=== PATIENT | female | born 1990 | race African-American/Black ===

== ENCOUNTER 2016-12-25 18:15 | Inpatient (IN) | payer OTHER ==
[2016-12-25] MEDS ORDERED: DEXTROSE 5%-LACTATED RINGERS 500 ML IV ONE ×2 (19:10→20:10)
[2016-12-25 20:56] LABS: BASOPHIL 0.3 % (0-2.0); EOSINOPHIL 1.3 % (0-4.5); MCHC 33.2 g/dl (32.0-36.0); MEAN CELL VOLUME 96.4 fl (80-96); MEAN PLT VOLUME 8.1 fl (7.5-11.1); NEUTROPHILS 64.7 % (42.8-82.8); PLATELET COUNT 289 K/MM3 (134-434); RDW 13.8 % (11.6-15.6); WHITE BLOOD COUNT 7.4 K/mm3 (4.0-10.0)
[2016-12-25 21:17] LABS: INR 1.02 (0.82-1.09); PROTHROMBIN TIME (PATIENT) 11.2 SEC (9.98-11.88)
[2016-12-25 21:20] LABS: ACTIVATED PTT 30.8 SECONDS (26.9-34.4)
[2016-12-25 21:21] LABS: ANION GAP 9 (8-16); CALCIUM 8.2 mg/dL (8.5-10.1); CO2 22 mmol/L (21-32); CREATININE 0.8 mg/dL (0.55-1.02); GLUCOSE,RANDOM 115 mg/dL (74-106)
[2016-12-25] MEDS ORDERED: BUTORPHANOL TARTRATE 1 MG/ML VIAL IVPB ONE (22:00)
[2016-12-25] MEDS ORDERED: DEXTROSE 5%-LACTATED RINGERS 1,000 ML IV SCH (22:00)
[2016-12-25] MEDS ORDERED: PROMETHAZINE HCL 25 MG/1 ML VIAL IVPB ONE (22:00)
[2016-12-25 22:59] LABS: URINE APPEARANCE CLEAR; URINE BILIRUBIN NEGATIVE (NEGATIVE); URINE COLOR LTYELLOW; URINE GLUCOSE (UA) NEGATIVE (NEGATIVE); URINE KETONE NEGATIVE (NEGATIVE); URINE NITRITE NEGATIVE (NEGATIVE); URINE PROTEIN NEGATIVE (NEGATIVE); URINE UROBILINOGEN NEGATIVE E.U./dl (0.2-1.0)
[2016-12-25 23:06] LABS: URINE BLOOD 2+ (NEGATIVE); URINE LEUK ESTERASE 3+ (NEGATIVE)
[2016-12-25 23:08] LABS: URINE BACTERIA RARE /hpf (NONE SEEN); URINE MUCUS RARE; URINE RBC 2 /hpf (0-3); URINE WBC 44 /hpf (3-5)
[2016-12-26 00:03] LABS: URINE MARIJUANA THC NEGATIVE ng/ml (CUTOFF=50)
[2016-12-26 00:16] VITALS: BMI 39.6
[2016-12-26] MEDS: ELECTROLYTE-148 SOLN 1,000 ML IV SCH ×2 (02:50→06:25)
[2016-12-26] MEDS ORDERED: FENTANYL/BUPIVACAINE/NS/PF - PCEA - 50 ML DISP.SYRIN EP SCH (03:00)
[2016-12-26] MEDS ORDERED: ACETAMINOPHEN/CAFFEINE/BUTALBITAL 1 TAB PO ONE (04:19)
[2016-12-26] MEDS: OXYTOCIN 15 UNITS/ LR 250 ML 250 ML IVPB SCH (05:40)
--- NOTE | 2016-12-26 09:13 | HP ---
Past Medical History - Primary Care Physician PCP:: Jose Guzman - Admission Chief Complaint: 26yo P0 with atEGA 40wks admitted with spontaneous latent labor last night. History of Present Illness: care complicated by obesity Late PNC transfer from [facility] at 32wks History Source: Patient, Medical Record Limitations to Obtaining History: No Limitations - Past Medical History ACCESS SPEC: No: Alzheimer's, CVA, Dementia, Migraine, Multiple Sclerosis, Peripheral Neuropathy, Parkinson's, Seizure, Syncope, TIA, Vertigo, Other Cardiovascular: No: AFIB, Aneurysm, Aortic Insufficiency, Aortic Stenosis, CAD, CHF, Deep Vein Thrombosis, HTN, Hyperlipdemia, [place], Mitral Insufficiency, Mitral Stenosis, Murmur, Pulmonary Hypertension, Other Pulmonary: Yes: Asthma Gastrointestinal: No: Ascites, Cancer, Constipation, Crohn's Disease, Diverticulitis, Diverticulosis, Esophageal Varices, Gastritis, GERD, GI Bleed, Hemorrhoids, Hiatal Hernia, Inflamatory Bowel Disease, Irritable Bowel Disease, Pancreatitis, Peptic Ulcer Disease, Ulcerative Colitis, Other Hepatobiliary: No: Cirrhosis, Cholelithiasis, Cholecystitis, Choledocholithiasis , Hepatitis A, Hepatitis B, Hepatitis C, Other Renal/: No: Renal Failure, Renal Inusuff, BPH, Cancer, Hematuria, Hemodialysis , Neurogenic Bladder, Renal Calculi, UTI, Other ...: 1 ...Para: 0 ...Term: 0 ...: 0 ...Spon : 0 ...Induced : 0 ...Multiple Gestation: 0 ...LMP: 03/20/16 ... Weeks Gestation by Dates: 40.0 ...EDC by Dates: 12/25/16 ...EDC by Sono: 12/25/16 Heme/Onc: No: Anemia, B12 Deficiency, Bleeding Disorder, Cancer, Current Chemotherapy, Current Radiation Therapy, Hemochromatosis, Hypercoaguable State, Myeloproliferative Synd, Sickle Cell Disease, Sickle Cell Trait, Thrombocytopenia, Other Infectious Disease: Yes: Other (Chlamydia in early ) Psych: No: Addictions, Anxiety, Bipolar, Depression, Panic, Psychosis, Schizophrenia, Other Musculoskeletal: No: Bursitis, Chronic low back pain, Hemiparesis, Hemiplegia, Osteoarthritis, Paraplegia, Other Rheumatology: No: Fibromyalgia, Gout, Lupus, Rheumatoid Arthritis, Sarcoidosis, Vasculitis, Other ENT: No: Allergic Rhinitis, Sinusitis, Other Endocrine: No: [place]'s Disease, Ronnie's Disease, Diabetes Insipidus, Diabetes Mellitus, Hyperparathyroidism, Hyperthyroidism, Hypothyroidism, Osteopenia, SIADH, Other Dermatology: No: Basal Cell, Cellulitis, Eczema, Melanoma, Psoriasis, Squamous Cell, Other Additional Medical History: Obese - Past Surgical History Past Surgical History: Yes: None Hx Myomectomy: No Hx Transabdominal Cerclage: No - Smoking History Smoking history: Never smoked Have you smoked in the past 12 months: No - Alcohol/Substance Use Hx Alcohol Use: No History of Substance Use: reports: None - Social History Usual Living Arrangement: Yes: Alone ADL: Independent History of Recent Travel: No Home Medications - Allergies Allergies/Adverse Reactions: Allergies Allergy/AdvReac Type Severity Reaction Status Date / Time No Known Allergies Allergy Verified 12/26/16 08:29 - Home Medications Home Medications: Ambulatory Orders Albuterol Sulfate Inhaler - [Ventolin Hfa Inhaler -] 1 - 2 inh PO Q4H PRN Fluticasone/Salmeterol [Advair Hfa 115-21 Mcg Inhaler] 1 inh PO BID 12/25/16 Montelukast Na [Singulair -] 10 mg PO DAILY 12/25/16 Vitamins (Sjr) - 1 tab PO DAILY 12/25/16 Family Disease History - Family Disease History Family History: Denies Review of Systems - Review of Systems Constitutional: reports: No Symptoms Eyes: reports: No Symptoms HENT: reports: No Symptoms Neck: reports: No Symptoms Cardiovascular: reports: No Symptoms Respiratory: reports: No Symptoms Gastrointestinal: reports: No Symptoms Genitourinary: reports: No Symptoms Breasts: reports: No Symptoms Reported Musculoskeletal: reports: No Symptoms Integumentary: reports: No Symptoms Neurological: reports: No Symptoms Endocrine: reports: No Symptoms Hematology/Lymphatic: reports: No Symptoms Psychiatric: reports: No Symptoms Pain Intensity: 0 (Epidural) Physical Exam - Maternity Vital Signs: Vital Signs Temperature 99.0 F 12/26/16 07:00 Pulse Rate 91 H 12/26/16 07:45 Respiratory Rate 20 12/26/16 07:45 Blood Pressure 97/49 12/26/16 07:45 O2 Sat by Pulse Oximetry (%) 97 12/26/16 07:45 Constitutional: Yes: Well Nourished, No Distress, Calm Eyes: Yes: WNL, Conjunctiva Clear HENT: Yes: WNL, Atraumatic, Normocephalic Neck: Yes: WNL, Supple, Trachea Midline Cardiovascular: Yes: WNL, Regular Rate and Rhythm Lungs: Clear to auscultation, Normal air movement Breast(s): Yes: WNL - Abdominal Exam/OB Fundal Height: 40 Number of Fetuses: Single Presentation: Vertex Contractions: Yes Regularity: Regular Intensity: Unaware Monitor Mode: External Heart Rate (range): 135 Heart Rate Location: Midline Category: II Accelerations: Non-Uniform Decelerations: Variable - Vaginal Exam/OB Vaginal Bleediing: No Speculum Exam: No Dilatation (cm): 10 Effacement (%): 100 Amniotic Membrane Status: Leaking Amniotic Fluid: Yes: Clear Presentation: Vertex/Position Station: 0 - Physical Exam Musculoskeletal: Yes: WNL Extremities: Yes: WNL Edema: Yes Edema: LLE: Trace, RLE: Trace Integumentary: Yes: WNL Deep Tendon Reflex Grade: Normal +2 ...Motor Strength: WNL Psychiatric: Yes: WNL, Alert, Oriented - Labs Lab Results: CBC, BMP 12/25/16 19:50 12/25/16 19:50 Hemorrhage Risk Assessment - Risk Factors Medium Risk Factors: Yes: None High Risk Factors: Yes: None Risk Score: 1 Risk Level: Medium Risk Assessment/Plan 26yo P0 with atEGA 40wks admitted with spontaneous latent labor last night. Pt with SROM overnight. Now s/p epidural placement and comfortable. FSE was applied. Pt with second stage of labor but head is high and plan to wait for spont descent of head. tracing is Category II. Plan to monitor labor and tracing
--- NOTE | 2016-12-26 10:52 | PN ---
Progress Note, Labor Vaginal Exam #1 Labor Exam Date: 12/26/16 Labor Exam Time: 10:30 Heart Rate (range): 120 Dilatation: 10 Effacement (%): 100 Amniotic Membrane Status: Ruptured Presentation: Vertex/Position Station: +1 Remarks: 26 yo @ 40 wks, active labor 1. Fully dilated, will await descent 2. GBS negative 3. Occasional variable deceleration, curretnly category II. Patient placed on L lateral and O2 via facemask 4. will continue to monitor
[2016-12-26] MEDS: OXYTOCIN 20 UNITS in 0.9% NS 1,000 ML IV SCH ×2 (13:45→20:45)
[2016-12-26 14:55] LABS: ARTERIAL BLD GAS O2 SATURATION 9.1 % (90-98.9); ARTERIAL BLOOD GAS BASE EXCESS -2.8 meq/l (-2-2); ARTERIAL BLOOD GAS HCO3 24.9 meq/L (22-26); ARTERIAL BLOOD GAS pH 7.26 (7.35-7.45)
[2016-12-26 14:57] LABS: ARTERIAL BLD GAS O2 SATURATION 56.6 % (90-98.9); ARTERIAL BLOOD GAS BASE EXCESS -3.1 meq/l (-2-2); ARTERIAL BLOOD GAS pH 7.34 (7.35-7.45)
[2016-12-26 15:20] LABS: ARTERIAL BLOOD GAS PO2 9.5 mmHg (80-100)
[2016-12-26 15:21] LABS: LPM/O2% 21%; PT. ON O2? NO
[2016-12-26 15:22] LABS: ARTERIAL BLOOD GAS PO2 26.4 mmHg (80-100); LPM/O2% 21%; PT. ON O2? NO; TYPE OF O2 ROOM AIR
[2016-12-26] MEDS ORDERED: oxyCODONE HCL 5 MG TABLET PO PRN (15:28)
[2016-12-26] MEDS ORDERED: METHYLERGONOVINE MALEATE 0.2 MG/1 ML AMP IM PRN (15:28)
[2016-12-26] MEDS ORDERED: IBUPROFEN 800 MG/8 ML IJ IVPB PRN (15:28)
[2016-12-26] MEDS ORDERED: WITCH HAZEL 50% (TUCKS) 40 PAD/JAR PAD TP PRN (15:28)
[2016-12-26] MEDS ORDERED: IBUPROFEN 600 MG TABLET (FP) PO PRN (15:28)
--- NOTE | 2016-12-26 15:33 | PN ---
Progress Note (short form) - Note Progress Note: Late note for 12/26@ 1300 Patient examined, found to be fully dilated and pushing for approximately three hours Discussed given poor descent of head with contractions, patient desires delivery. Discussed risks including but not limited to infection, bleeding requiring transfusion and damage to surrounding organs such as the bowel or bladder. Discussed risk of injury to . Discussed risk of wound infection and separation. Discussed need for planning of future children and possibility of abnormal placentation. All questions answered. Patient expressed understanding. Nursing and OR staff notified. Will proceed to OR
--- NOTE | 2016-12-26 15:34 | PN ---
Delivery - Delivery Vaginal Delivery: No Problems Section: Primary Type of Anesthesia: Epidural EBL (cc): 800 Delivery, Single - Stages of Labor Date 1st Stage Initiatied: 12/25/16 Time 1st Stage Initiated: 22:00 Date 2nd Stage Initiated: 12/26/16 Time 2nd Stage Initiated: 09:00 Date of Delivery: 12/26/16 Time of Delivery: 14:31 Date Placenta Delivered: 12/26/16 Time Placenta Delivered: 14:32 - Condition of Infant Gender: Male Position: Left, OT - [place] Feeding Plan Initial Plan: Elected not to breastfeed exclusively throughout hospitalization Remarks - Remarks Remarks: Surgeon: Andrew Assist: Thomas Anesthesia: Roy EBL: 800 IVF: 2000 UOP 200 Findings: male infant, LOT, Wt 7lb 1oz, 19 inches, 9,9, Normal tubes and ovaries bilaterally Dictation:
[2016-12-26] MEDS ORDERED: morphine SULFATE/Preservative Free 0.5 MG/ML (1cc Syringe) EP ONE (15:50)
[2016-12-26] MEDS ORDERED: ONDANSETRON 4 MG/2 ML VIAL IVPB PRN (15:50)
[2016-12-27] MEDS: OXYTOCIN 15 UNITS/ LR 250 ML 250 ML IVPB SCH (00:01)
[2016-12-27 07:17] LABS: BASOPHIL 0.3 % (0-2.0); MCH 32.4 pg (25.7-33.7); MCHC 33.1 g/dl (32.0-36.0); MEAN CELL VOLUME 97.8 fl (80-96); MEAN PLT VOLUME 7.7 fl (7.5-11.1); NEUTROPHILS 73.6 % (42.8-82.8); PLATELET COUNT 216 K/MM3 (134-434); WHITE BLOOD COUNT 16.6 K/mm3 (4.0-10.0)
--- NOTE | 2016-12-27 07:48 | PN ---
Post Progress Note - Subjective Subjective: Patient without acute complaints. Reports tolerating oral intake without nausea or vomiting. No ambulation or voiding yet. Denies fevers or chills. Pain well controlled with oral pain medication. and bottle feeding. No flatus yet. Post Day: 1 Type of Delivery: Primary C/S Vital Signs: Vital Signs Temperature 98.4 F 12/27/16 06:00 Pulse Rate 90 12/27/16 06:00 Respiratory Rate 18 12/27/16 06:00 Blood Pressure 117/69 12/27/16 06:00 O2 Sat by Pulse Oximetry (%) 100 12/26/16 16:25 Breast Exam: Yes: Soft Uterus: Yes: Fundus Firm, Fundus @ umbilicus Incision: Yes: Dressing dry and intact Abdomen/GI: Yes: Abdomen soft, Tender (incisional), Tolerating PO. No: Abdominal Distention, Passing flatus Lochia: Yes: Serosa Lochia, amount: Small Extremities: Yes: Calves non-tender, Edema (trace) - Labs Labs: CBC WBC 16.6 K/mm3 (4.0-10.0) H D 12/27/16 06:00 RBC 3.33 M/mm3 (3.60-5.2) L 12/27/16 06:00 Hgb 10.8 GM/dL (10.7-15.3) 12/27/16 06:00 Hct 32.5 % (32.4-45.2) 12/27/16 06:00 MCV 97.8 fl (80-96) H 12/27/16 06:00 MCHC 33.1 g/dl (32.0-36.0) 12/27/16 06:00 RDW 14.0 % (11.6-15.6) 12/27/16 06:00 Plt Count 216 K/MM3 (134-434) D 12/27/16 06:00 MPV 7.7 fl (7.5-11.1) 12/27/16 06:00 Neutrophils % 73.6 % (42.8-82.8) 12/27/16 06:00 Lymphocytes % 17.0 % (8-40) D 12/27/16 06:00 Monocytes % 8.1 % (3.8-10.2) 12/27/16 06:00 Eosinophils % 1.0 % (0-4.5) 12/27/16 06:00 Basophils % 0.3 % (0-2.0) 12/27/16 06:00 Assessment/Plan 26 yo POD #1 s/p primary CD, afebrile, vital signs stable, doing well 1. Continue routine postoperative care. 2. AM CBC stable 3. Rh positive status, no rhogam indicated. 4. Encourage ambulation and incentive spirometer use 5. Continue oral pain medication 6. Anticipate discharge home postopearative day #3 or #4
[2016-12-27] MEDS: PRENATAL VITAMINS W/ FOLIC ACID TABLET (FP) PO SCH (09:28)
[2016-12-27] MEDS: ENOXAPARIN NA (PORCINE) 40 MG/0.4 ML DISP.SYRIN SQ SCH (09:28)
--- NOTE | 2016-12-27 10:29 | PN ---
Progress Note (short form) - Note Progress Note: Anesthesia postop note 26 y/o F s/p epidural anesthesia for labor and section POD#1, vss, aaox3, no complaints, pain well controlled, sitting in chair, no headache, sensory motor intact distally Epidural catheter removed this morning with tip intact. Patient instructed to inform the nurse if she experience a headache. No anesthesia complications so far.
--- NOTE | 2016-12-27 12:11 | OP ---
DATE OF OPERATION: 12/26/2016 PREOPERATIVE DIAGNOSIS: Intrauterine at 40 weeks, failure to descend. POSTOPERATIVE DIAGNOSIS: Intrauterine at 40 weeks, failure to descend. FINDINGS: Male infant in LOT position. Apgars of 9 and 9. Weight: 7 pounds 1 ounce; 19 inches. Normal tubes and ovaries bilaterally. SURGEON: Shayy Morales MD DRIVER'S EDUCATION INSTRUCTOR: Jose Guzman MD ANESTHESIA: Dr. Roy ESTIMATED BLOOD LOSS: 800 INTRAVENOUS FLUIDS: 2000 URINE OUTPUT: 200 INDICATION: Patient is a 26-year-old, 1, para 0, who presented in labor , progressed to fully dilated, pushed for approximately 3 hours with poor descent of head. She was counseled regarding continued vaginal delivery versus delivery. She opted for delivery. Risks, benefits, and alternatives, and complications of the procedure were discussed including infection; bleeding requiring transfusion; damage to surrounding organs such as bowel, bladder, ureters; injury to ; abnormal presentation of next . She expressed understanding, was brought to the operating room. DESCRIPTION OF PROCEDURE: When anesthesia was found to be adequate, patient was prepped and draped in the normal sterile fashion, placed in dorsal supine position with a leftward tilt. An approximately 11-cm skin incision was made with a knife and extended down to the underlying rectus muscles using the Bovie electrocautery. The fascia was nicked in the midline, extended laterally using Rivers scissors. The superior portion of the fascial incision was tented up using Marely clamps and dissected off the underlying rectus muscles using the Rivers scissors. Attention was brought to the inferior portion which was tented up using Marely clamps, dissected off the underlying rectus muscles using Rivers scissors. The rectus muscles were manually, and the peritoneum was entered sharply. The peritoneal incision was bluntly extended. The vesicouterine peritoneum was identified, entered sharply, and bladder flap was created digitally. Hysterotomy was performed and extended using the bandage scissors. The infant's head was found to be in the pelvis and brought to the hysterotomy site. Infant's head was delivered, followed by shoulders and body without difficulty. Nuchal cord was noted and reduced. Cord was clamped and cut. was handed to the waiting NICU staff. The blood gases and cord blood were collected and sent. The placenta was manually extracted. The uterus was cleared of all clot and debris. The uterus was closed using 0 Biosyn in a running fashion with a second layer as an imbricated layer. Good hemostasis was noted from the hysterotomy site. The vesicouterine peritoneum was reapproximated using 0 Biosyn in a running fashion. The gutters were cleared of all clot and debris. Good hemostasis was noted. The parietal peritoneum was closed using 2-0 Biosyn in a running fashion. The rectus muscles were reapproximated using 0 Biosyn in an interrupted fashion. The fascia was closed using 0 Vicryl in a running fashion. The subcutaneous fat was closed using 0 Vicryl in a running fashion. The skin was reapproximated using 2-0 Vicryl. Patient tolerated the procedure well. Estimated blood loss was 800 mL. Patient was brought to recovery room in stable condition. Georgette [id number] MTDD
[2016-12-27] MEDS: SIMETHICONE 80 MG TAB.CHEW (FP) PO PRN ×2 (12:29→21:29)
[2016-12-27] MEDS: ACETAMINOPHEN 325 MG TABLET (FP) PO PRN (12:29)
[2016-12-27] MEDS: IBUPROFEN 600 MG TABLET (FP) PO PRN ×2 (12:30→21:30)
[2016-12-27] MEDS: ELECTROLYTE-148 SOLN 1,000 ML IV SCH (13:59)
[2016-12-27] MEDS ORDERED: BISACODYL 10 MG SUPP.RECT RC PRN (15:28)
[2016-12-27] MEDS: OXYTOCIN 20 UNITS in 0.9% NS 1,000 ML IV SCH (15:42)
[2016-12-27] MEDS: ACETAMINOPHEN/CAFFEINE/BUTALBITAL 1 TAB PO PRN (21:29)
[2016-12-28] MEDS: SIMETHICONE 80 MG TAB.CHEW (FP) PO PRN ×4 (01:28→23:33)
[2016-12-28] MEDS: ACETAMINOPHEN/CAFFEINE/BUTALBITAL 1 TAB PO PRN ×2 (01:29→09:12)
[2016-12-28] MEDS: IBUPROFEN 600 MG TABLET (FP) PO PRN (01:29)
--- NOTE | 2016-12-28 08:32 | PN ---
Progress Note (short form) - Note Progress Note: pod 2 s/p c/s , c/o headache, worsen by moving , no blurred vision CBC, BMP 12/27/16 06:00 12/25/16 19:50 Last Vital Signs Temp Pulse Resp BP Pulse Ox 98.6 F 87 18 113/61 100 12/27/16 22:00 12/27/16 22:00 12/27/16 22:00 12/27/16 22:00 12/26/16 16:25 uterus firm, non tender, no cva incision dry, clean no calf tenderness impression r/o spinal headache pod 2 incison healinng wel;l plan anesthesia consult, hydration
[2016-12-28] MEDS: ENOXAPARIN NA (PORCINE) 40 MG/0.4 ML DISP.SYRIN SQ SCH (09:12)
[2016-12-28] MEDS: PRENATAL VITAMINS W/ FOLIC ACID TABLET (FP) PO SCH (09:12)
--- NOTE | 2016-12-28 09:24 | PN ---
Progress Note (short form) - Note Progress Note: Patient states desires circumcision for . Discussed risks including infection, bleeding, damage to tip of penis, and unsatisfactory result, resulting in surgical repair or repeat circumcision. Patient expressed understanding and consents to procedure. Reviewed infants chart, normal genitalia per sugar cane farm manager, Dr. Proctor
[2016-12-28] MEDS ORDERED: LIDOCAINE HCL/PF 2% SDV 5ML VIAL ONE (10:46)
--- NOTE | 2016-12-28 11:13 | PROC ---
Procedure Note Procedure: ANESTHESIOLOGY - EPIDURAL BLOOD PATCH Called to evaluate patient for post-dural puncture headache on PPD #2 after known dural puncture. Pt has significant scoliosis. Pt c/o bilateral frontal and occipital/neck headache 10/10 when sitting and 6/10 when supine. Denies audiotory or visual changes, N/V. Risks and benefits of performing epidurla blood patch vs conservative management with bed rest, hydration, NSAIDs and caffeine. Pt desires blood patch and informed consent obtained. Dr. Lupillo Sands in attendance. Pt sitting. Sterile prep/drape, 1% lidocaine skin infiltration at ~L3-L4. Multiple attempts with 17G x 9cm Tuohy needle. ROSE to NS felt at 9 cm. 18G peripheral intravenous access of left antecubital vein obtained under sterile conditions. 10 ml of blood collected and 5 lm of blood injected but patient experienced right sided paresthesia and injection ceased. Another attempt made by Dr Sands with ROSE to NS at 9 cm at same level. 18G peripheral intravenous access of left hand obtained under sterile conditions. 30 ml of blood collected and 25 ml injected through Tuohy needle. Needle removed and pat reports some relief of headache on injectoin. Pt lay supine and instructed to stay supine for 1 hour. Will follow.
[2016-12-28] MEDS: ACETAMINOPHEN 325 MG TABLET (FP) PO PRN ×3 (13:48→23:34)
[2016-12-28] MEDS: oxyCODONE HCL 5 MG TABLET PO PRN ×3 (13:49→23:33)
[2016-12-29] MEDS: IBUPROFEN 600 MG TABLET (FP) PO PRN ×2 (08:14→12:33)
[2016-12-29] MEDS: SIMETHICONE 80 MG TAB.CHEW (FP) PO PRN ×2 (08:15→12:34)
[2016-12-29] MEDS: oxyCODONE HCL 5 MG TABLET PO PRN ×2 (08:15→12:34)
[2016-12-29 08:37] LABS: BASOPHIL 0.9 % (0-2.0); EOSINOPHIL 3.3 % (0-4.5); MCH 32.4 pg (25.7-33.7); MCHC 33.5 g/dl (32.0-36.0); MEAN CELL VOLUME 96.8 fl (80-96); MEAN PLT VOLUME 8.1 fl (7.5-11.1); NEUTROPHILS 57.4 % (42.8-82.8); PLATELET COUNT 269 K/MM3 (134-434); RDW 14.1 % (11.6-15.6); WHITE BLOOD COUNT 11.2 K/mm3 (4.0-10.0)
[2016-12-29] MEDS: PRENATAL VITAMINS W/ FOLIC ACID TABLET (FP) PO SCH (10:15)
[2016-12-29] MEDS: ENOXAPARIN NA (PORCINE) 40 MG/0.4 ML DISP.SYRIN SQ SCH (10:15)
[2016-12-29 13:09] VITALS: BP 128/77; PULSE 74; TEMP 99
--- NOTE | 2016-12-29 14:08 | DS ---
Physical Exam-METAL CAN INSPECTOR Vital Signs: Vital Signs Temperature 99.0 F 12/29/16 09:00 Pulse Rate 74 12/29/16 09:00 Respiratory Rate 20 12/29/16 09:00 Blood Pressure 128/77 12/29/16 09:00 O2 Sat by Pulse Oximetry (%) 100 12/26/16 16:25 Constitutional: Yes: Well Nourished Eyes: Yes: WNL HENT: Yes: WNL Neck: Yes: WNL Cardiovascular: Yes: WNL Respiratory: Yes: WNL Gastrointestinal: Yes: WNL Renal/: Yes: WNL Pelvis: Yes: WNL External Genitalia: Yes: Normal Internal Exam Deferred: No Breast(s): Yes: WNL Musculoskeletal: Yes: WNL Extremities: Yes: WNL Edema: No Integumentary: Yes: WNL Wound/Incision: Yes: Clean/Dry Neurological: Yes: WNL ...Motor Strength: WNL Psychiatric: Yes: WNL Labs: CBC, BMP 12/29/16 08:10 12/25/16 19:50 Delivery - Delivery Vaginal Delivery: No Problems Section: Primary Type of Anesthesia: Epidural Episiotomy/Laceration: None EBL (cc): 800 Delivery, Single - Stages of Labor Date 1st Stage Initiatied: 12/25/16 Time 1st Stage Initiated: 22:00 Date 2nd Stage Initiated: 12/26/16 Time 2nd Stage Initiated: 09:00 Date of Delivery: 12/26/16 Time of Delivery: 14:31 Time Placenta Delivered: 14:32 - Condition of Infant Transaction Manager/Pump Servicer Present: Yes Name: Andreea Kay Infant Gender: Male Weight: 7 lb 1 oz Position: Left, OT Total Hours ROM (Hrs/Mins): 13HRS 12MIN - 1 Minute Total Score: 9 5 Minutes Total Score: 9 - [place] Feeding Plan Initial Plan: Elected not to breastfeed exclusively throughout hospitalization Discharge Summary Reason For Visit: LABOR Condition: Good - Instructions Diet, Activity, Other Instructions: Physical activity Resume your normal everyday activity as tolerated no heavy lifting or exercise until seen by your surgeon. You may walk unlimited sanam of and climb stairs. You may resume driving the car when you feel safe and comfortable behind the wheel. No sexual activity as instructed. Wound care If you have a bandage, leave it on, and keep dry for 48-72 hours. After that time discard the outer bandage. If they are tapes on the skin under the out of bandage leave them in place. They will peel off in the next 7 to 10 days. Do Not Peel them off. You may shower the day after surgery. If there are tapes present on the skin, you may shower over them. Diet There are no dietary restrictions. Eat healthy, high-fiber foods. Drink 6 to 8 glasses of liquid each day. This will assist in keeping your bowels are regular. Pain management You may take Tylenol or acetaminophen or Ibuprofen (for example, Motrin, Advil etc.) from my pain prescription medication is ordered should be taken as prescribed for moderate to severe pain. Call MD for any of the following: Severe pain not relieved by medication Fever of 101 or higher Excessive bleeding or drainage on dressing Inability to urinate CALL FOR ONE WEEK FOLLOW UP APPOINTMENT Referrals: Shayy Morales MD [Staff Physician] - Disposition: HOME - Home Medications Comprehensive Discharge Medication List: Ambulatory Orders Albuterol Sulfate Inhaler - [Ventolin Hfa Inhaler -] 1 - 2 inh PO Q4H PRN Fluticasone/Salmeterol [Advair Hfa 115-21 Mcg Inhaler] 1 inh PO BID 12/25/16 Montelukast Na [Singulair -] 10 mg PO DAILY 12/25/16 Vitamins (Sjr) - 1 tab PO DAILY 12/25/16 Butalb/Acetaminophen/Caffeine [Fioricet 50-300-40 mg Capsule] 1 each PO Q4HWA # 20 capsule MDD 6 12/29/16 Ibuprofen [Motrin -] 600 mg PO QID #28 tablet 12/29/16 Oxycodone HCl 5 mg PO Q4HWA #20 capsule MDD 8 12/29/16
--- NOTE | 2016-12-29 14:08 | PN ---
Post Progress Note - Subjective Subjective: 26 yo P1 s/p no complains, + flatus, ambulating, tolerating regular diet Type of Delivery: Primary C/S Vital Signs: Vital Signs Temperature 99.0 F 12/29/16 09:00 Pulse Rate 74 12/29/16 09:00 Respiratory Rate 20 12/29/16 09:00 Blood Pressure 128/77 12/29/16 09:00 O2 Sat by Pulse Oximetry (%) 100 12/26/16 16:25 Breast Exam: Yes: Soft Uterus: Yes: Fundus Firm Incision: Yes: Sutures intact Abdomen/GI: Yes: Abdomen soft, Passing flatus, Tolerating PO Lochia: Yes: Rubra Lochia, amount: Small Extremities: Yes: Calves non-tender Activity: Ambulating - Labs Labs: CBC WBC 11.2 K/mm3 (4.0-10.0) H D 12/29/16 08:10 RBC 3.38 M/mm3 (3.60-5.2) L 12/29/16 08:10 Hgb 11.0 GM/dL (10.7-15.3) 12/29/16 08:10 Hct 32.7 % (32.4-45.2) 12/29/16 08:10 MCV 96.8 fl (80-96) H 12/29/16 08:10 MCHC 33.5 g/dl (32.0-36.0) 12/29/16 08:10 RDW 14.1 % (11.6-15.6) 12/29/16 08:10 Plt Count 269 K/MM3 (134-434) D 12/29/16 08:10 MPV 8.1 fl (7.5-11.1) 12/29/16 08:10 Neutrophils % 57.4 % (42.8-82.8) D 12/29/16 08:10 Lymphocytes % 32.6 % (8-40) D 12/29/16 08:10 Monocytes % 5.8 % (3.8-10.2) 12/29/16 08:10 Eosinophils % 3.3 % (0-4.5) D 12/29/16 08:10 Basophils % 0.9 % (0-2.0) 12/29/16 08:10 Assessment/Plan 26 yo P1 s/p 1' c/s POD#3, doing well No Headache, post blood patch plan to d/c home now NPV for 6wks RTO in 1 wk
--- NOTE | 2016-12-31 14:18 | PATH ---
Surgical Pathology Report Patient Name: ERNIE MENON [facility]. Rec. #: [id number] /Age/Gender: 1990 (Age: 26) / F Account: [id number] Location: [facility] OBS/HISTOLOGIC AIDE Taken: 12/26/2016 Received: 12/27/2016 Reported: 12/31/2016 Physicians: Jose Guzman M.D. Specimen(s) Received PLACENTA Clinical History , 40.1 weeks, late registrant History of asthma-last attack 2014 Final Diagnosis PLACENTA, DELIVERY: THIRD TRIMESTER PLACENTA WITH ACUTE CHORIONITIS, INTERVILLOUS FIBRIN DEPOSITION, AND 3 VESSEL UMBILICAL CORD. Electronically Signed Keegan Fontaine M.D. Gross Description The specimen is received fresh labeled placenta and is a 500 gram, 16.0 x 14.5 x 3.0 cm. placenta with attached membranes and umbilical cord. The attached membranes are nicole, translucent with focal opacities and insert marginally. The umbilical cord measures 16 cm. in length and averages 1 cm. in diameter. The cord inserts eccentrically, 4.5 cm. to the nearest margin. No true knots or strictures are identified. Cut surface of the umbilical cord reveals 3 vessels. The surface is whiting-blue with minimal fibrin deposition and appropriate caliber vessels. The maternal surface is red-brown and intact. Sectioning reveals red-brown, spongy parenchyma. No lesions are identified. Shank Breaker sections are submitted in three cassettes as follows: 1- membrane rolls and umbilical cord; 2-3- full thickness sections of placenta. 12/28/2016 [facility]12/28/2016
== END 2016-12-29 14:20 | disposition home or self-care (01) | DRG 766 ==
LOC: JDEL 18:15 → JLDR 22:00 → J3W 12-26 17:57
PROVIDERS: ADMIT Obstetrics & Gynecology; ATTEND Obstetrics & Gynecology
PROC: 10D00Z1 Extraction of Products of Conception, Low, Open Approach (ICD-10-PCS; principal; 2016-12-26)
PROC: 3E0R3GC Introduction of Other Therapeutic Substance into Spinal Canal, Percutaneous Approach (ICD-10-PCS; 2016-12-28)
DX: O32.4XX0 Maternal care for high head at term, not applicable or unspecified (principal); O99.214 Obesity complicating childbirth; O74.5 Spinal and epidural anesthesia-induced headache during labor and delivery; Z3A.40 40 weeks gestation of pregnancy; Z37.0 Single live birth
CPT/HCPCS: 36415; 36600; 80048; 80307; 81003; 81015; 82803; 85025; 85610; 85730; 86593; 86762; 86850; 86900; 86901; 87340; 88307-TC